=== PATIENT | male | born 1965 | race Caucasian/White ===

== ENCOUNTER → 2016-04-01 | Outpatient (CLI) | payer BC ==
[2016-04-01 17:40] LABS: Basophils % (A) 1 %; CH 30.8; CHCM 33.9; Eosinophils # (A) 0.2 k/uL (0-0.7); Eosinophils % (A) 4 %; HCT 40.7 % (39.0-53.0); HDW 2.31; HGB 13.6 gm/dL (13.0-17.5); Luc # (Auto) 0.09; Luc % (Auto) 2; Lymphocytes # (A) 1.2 k/uL (1.0-4.8); Lymphocytes % (A) 24 %; MCH 30.4 pg (25.0-35.0); MCHC 33.3 g/dL (31.0-37.0); MCV 91.3 fL (80.0-100.0); Mean Platelet Volume 6.6; Monocytes # (A) 0.2 k/uL (0-1.0); Monocytes % (A) 4 %; Neutrophils # (A) 3.4 k/uL (1.3-7.7); Neutrophils % (A) 66 %; RBC 4.46 m/uL (4.30-5.90); WBC 5.2 k/uL (3.8-10.6); WBC (Perox) 5.69
[2016-04-01 17:52] LABS: Bilirubin, Delta 0.2 mg/dL (0.0-0.2); Total Bilirubin 0.3 mg/dL (0.2-1.3); Total Protein 6.9 g/dL (6.3-8.2)
[2016-04-04 09:49] LABS: Hepatits C Virus RNA, Quant <12 IU/mL (<12); LOG HCV IU/mL <1.08 (<1.08)
== END | disposition home or self-care (01) ==
LOC: LABWHC1 17:23
PROVIDERS: ATTEND Physician Assistant
DX: B18.2 Chronic viral hepatitis C (principal)
CPT/HCPCS: 36415; 80076; 85025; 87522

== ENCOUNTER 2020-11-28 01:08 | Inpatient (IN) | payer BC, OTHER ==
[2020-11-28] MEDS ORDERED: DIPH,PERTUS(ACELL)TETVAC-LF 0.5 ML VIAL IM ONE (01:12)
[2020-11-28] MEDS ORDERED: SODIUM CHLORIDE 0.9% 1,000 ML IV STA (01:12)
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
--- NOTE | 2020-11-28 01:39 | XR ---
EXAMINATION TYPE: XR pelvis AP view DATE OF EXAM: 11/28/2020 COMPARISON: NONE HISTORY: Unresponsive. Pain TECHNIQUE: Single view FINDINGS: Pelvic ring is intact. Proximal femurs and hip joints appear intact. Sacroiliac joints appe ar normal. IMPRESSION: Normal pelvis
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
[2020-11-28] MEDS ORDERED: MORPHINE SULFATE 4 MG/ML SYRINGE IVP PRN (01:55)
[2020-11-28 01:57] LABS: Glucose,Whole Blood 111 mg/dL (75-99)
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
[2020-11-28 02:06] LABS: Basophils # (A) 0.1 k/uL (0-0.2); Basophils % (A) 1 %; Eosinophils # (A) 0.2 k/uL (0-0.7); Eosinophils % (A) 2 %; HCT 40.1 % (39.0-53.0); Lymphocytes % (A) 9 %; MCHC 34.9 g/dL (31.0-37.0); MCV 88.7 fL (80.0-100.0); Mean Platelet Volume 7.8; Monocytes # (A) 0.5 k/uL (0-1.0); Monocytes % (A) 4 %; Neutrophils # (A) 9.3 k/uL (1.3-7.7); Neutrophils % (A) 84 %; Platelet Count 228 k/uL (150-450); RBC 4.52 m/uL (4.30-5.90); RDW 12.7 % (11.5-15.5); WBC 11.1 k/uL (3.8-10.6)
[2020-11-28 02:22] LABS: ALT 17 U/L (4-49); AST 27 U/L (17-59); African American GFR (CKD) >90 (>60 ml/min/1.73 sqM); Albumin 4.1 g/dL (3.5-5.0); Alcohol <10 mg/dL; Alkaline Phosphatase 112 U/L (38-126); Anion Gap 12 mmol/L; Blood Urea Nitrogen 15 mg/dL (9-20); Calcium 9.1 mg/dL (8.4-10.2); Carbon Dioxide 22 mmol/L (22-30); Chloride 104 mmol/L (98-107); Glucose 113 mg/dL (74-99); Non-African American GFR(CKD) 81 (>60 ml/min/1.73 sqM); Potassium 3.8 mmol/L (3.5-5.1); Sodium 138 mmol/L (137-145); Total Bilirubin 0.4 mg/dL (0.2-1.3)
[2020-11-28 02:28] LABS: INR 0.9 (<1.2); Prothrombin Time 9.7 sec (9.0-12.0)
[2020-11-28 02:46] LABS: Partial Thromboplastin Time 21.3 sec (22.0-30.0)
[2020-11-28 03:13] LABS: Appearance,Urine Clear (Clear); Bilirubin,Urine Negative (Negative); Blood,Urine Negative (Negative); Color,Urine Light Yellow; Glucose,Urine (UA) Negative (Negative); Ketones,Urine Negative (Negative); Leukocyte Esterase,Urine Negative (Negative); Nitrite,Urine Negative (Negative); Protein,Urine Negative (Negative); Specific Gravity,Urine 1.029 (1.001-1.035); Urobilinogen,Urine <2.0 mg/dL (<2.0)
[2020-11-28 03:31] LABS: Amphetamine Screen,Urine Detected (NotDetected); Barbiturate Screen,Urine Not Detected (NotDetected); Benzodiazepines Screen,Urine Not Detected (NotDetected); Cocaine Screen,Urine Not Detected (NotDetected); Methadone Screen, Urine Not Detected (NotDetected); Opiate Screen,Urine Detected (NotDetected); Oxycodone Screen, Urine Not Detected (NotDetected); Phencyclidine Screen,Urine Not Detected (NotDetected); Tricyclic Antidepressant,Urine Not Detected (NotDetected); Urn Cannabinoid Scrn Detected (NotDetected)
[2020-11-28] MEDS ORDERED: NALOXONE 0.4 MG/ML 1 ML VIAL IVP STA (04:19)
[2020-11-28] MEDS: NALOXONE 0.4 MG/ML 1 ML VIAL IVP STA ×2 (04:22→04:28)
[2020-11-28] MEDS ORDERED: MORPHINE SULFATE 4 MG/ML SYRINGE IV PRN (04:54)
[2020-11-28] MEDS ORDERED: LORazepam 2 MG/ML INJ IV PRN (04:54)
[2020-11-28] MEDS ORDERED: ONDANSETRON 4 MG/2 ML VIAL IVP PRN (04:54)
[2020-11-28] MEDS ORDERED: NALOXONE 0.4 MG/ML 1 ML VIAL IV PRN (04:54)
[2020-11-28] MEDS: SODIUM CHLORIDE 0.9% 1,000 ML IV SCH ×3 (06:20→20:22)
[2020-11-28] MEDS ORDERED: KETOROLAC 15 MG/ML 1 ML VIAL IVP PRN (09:59)
[2020-11-28] MEDS ORDERED: KETOROLAC 15 MG/ML 1 ML VIAL IVP SCH (12:00)
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
[2020-11-28] MEDS: QUEtiapine 25 MG TAB PO SCH (20:20)
[2020-11-28] MEDS: FAMOTIDINE 20 MG/2 ML VIAL IV SCH (20:23)
[2020-11-28 20:25] LABS: Glucose,Whole Blood 124 mg/dL (75-99)
--- NOTE | 2020-11-28 21:37 | CT ---
EXAMINATION TYPE: CT brain wo con DATE OF EXAM: 11/28/2020 COMPARISON: Today HISTORY: unresponsive CT DLP: 1114.4 mGycm Automated exposure control for dose reduction was used. Images obtained without contrast. Exam limited slightly by motion. Ventricles have normal size. There is no mass effect nor midline nessa ft. There is no sign of intracranial hemorrhage. Calvarium is intact. There is ethmoid and frontal si nus mucosal thickening. There are fluid levels in the frontal sinuses. IMPRESSION: No acute intracranial abnormality. No change compared to exam earlier today.
[2020-11-29] MEDS: SODIUM CHLORIDE 0.9% 1,000 ML IV SCH ×2 (04:51→16:32)
[2020-11-29 07:49] LABS: Basophils # (A) 0.1 k/uL (0-0.2); Basophils % (A) 1 %; Eosinophils # (A) 0.2 k/uL (0-0.7); Eosinophils % (A) 1 %; HGB 14.8 gm/dL (13.0-17.5); Lymphocytes # (A) 1.1 k/uL (1.0-4.8); Lymphocytes % (A) 10 %; MCH 30.3 pg (25.0-35.0); MCHC 34.4 g/dL (31.0-37.0); MCV 88.1 fL (80.0-100.0); Mean Platelet Volume 8.4; Monocytes # (A) 0.5 k/uL (0-1.0); Monocytes % (A) 5 %; Neutrophils # (A) 9.2 k/uL (1.3-7.7); Neutrophils % (A) 83 %; Platelet Count 212 k/uL (150-450); RBC 4.88 m/uL (4.30-5.90); RDW 12.8 % (11.5-15.5); WBC 11.2 k/uL (3.8-10.6)
[2020-11-29 08:12] LABS: ALT 16 U/L (4-49); AST 29 U/L (17-59); African American GFR (CKD) >90 (>60 ml/min/1.73 sqM); Albumin 4.2 g/dL (3.5-5.0); Alkaline Phosphatase 100 U/L (38-126); Anion Gap 10 mmol/L; Blood Urea Nitrogen 11 mg/dL (9-20); Calcium 9.2 mg/dL (8.4-10.2); Carbon Dioxide 22 mmol/L (22-30); Chloride 100 mmol/L (98-107); Glucose 108 mg/dL (74-99); Lipase 39 U/L (23-300); Magnesium 2.1 mg/dL (1.6-2.3); Non-African American GFR(CKD) >90 (>60 ml/min/1.73 sqM); Phosphorus 2.7 mg/dL (2.5-4.5); Potassium 4.4 mmol/L (3.5-5.1); Sodium 132 mmol/L (137-145); Total Bilirubin 0.9 mg/dL (0.2-1.3); Total Protein 7.2 g/dL (6.3-8.2)
[2020-11-29] MEDS: FAMOTIDINE 20 MG/2 ML VIAL IV SCH ×2 (08:24→20:37)
[2020-11-29] MEDS: ENOXAPARIN 40 MG/0.4 ML SYRINGE SQ SCH (08:24)
[2020-11-29] MEDS ORDERED: THIAMINE 100 MG TAB PO SCH (09:00)
[2020-11-29] MEDS ORDERED: NALOXONE 0.4 MG/ML 1 ML VIAL IVP STA (09:05)
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
[2020-11-29] MEDS: THIAMINE 100 MG in SODIUM CHLORIDE 0.9% 50 ML IVPB SCH ×2 (10:38→20:37)
--- NOTE | 2020-11-29 12:07 | P.PN ---
Progress Note - Text Progress Note Date: 11/29/20 Patient remains encephalopathic. He is currently being worked up by neurology and medicine. It is unclear if it's a metabolic encephalopathy due to his drug use. On exam vital signs are stable. His facial abrasions are healing. Chest is clear abdomen soft nontender. Encephalopathy, unsure of etiology. He'll continue receive supportive care.
[2020-11-29] MEDS: QUEtiapine 25 MG TAB PO SCH (20:37)
[2020-11-30] MEDS: SODIUM CHLORIDE 0.9% 1,000 ML IV SCH ×3 (02:17→23:09)
[2020-11-30 07:26] LABS: Glucose,Whole Blood 90 mg/dL (75-99)
[2020-11-30] MEDS: FAMOTIDINE 20 MG/2 ML VIAL IV SCH ×2 (08:57→21:42)
[2020-11-30] MEDS: ENOXAPARIN 40 MG/0.4 ML SYRINGE SQ SCH (08:57)
[2020-11-30] MEDS: THIAMINE 100 MG in SODIUM CHLORIDE 0.9% 50 ML IVPB SCH ×2 (08:57→21:42)
[2020-11-30 10:04] LABS: African American GFR (CKD) >90 (>60 ml/min/1.73 sqM); Anion Gap 10 mmol/L; Blood Urea Nitrogen 13 mg/dL (9-20); Calcium 8.9 mg/dL (8.4-10.2); Carbon Dioxide 20 mmol/L (22-30); Chloride 98 mmol/L (98-107); Glucose 78 mg/dL (74-99); Non-African American GFR(CKD) >90 (>60 ml/min/1.73 sqM); Sodium 128 mmol/L (137-145)
[2020-11-30 10:11] LABS: Potassium 4.3 mmol/L (3.5-5.1)
[2020-11-30 11:13] LABS: Basophils # (A) 0.1 k/uL (0-0.2); Basophils % (A) 1 %; Eosinophils # (A) 0.1 k/uL (0-0.7); Eosinophils % (A) 1 %; HCT 42.7 % (39.0-53.0); HGB 14.8 gm/dL (13.0-17.5); Lymphocytes # (A) 1.3 k/uL (1.0-4.8); Lymphocytes % (A) 14 %; MCH 30.7 pg (25.0-35.0); MCHC 34.7 g/dL (31.0-37.0); MCV 88.5 fL (80.0-100.0); Mean Platelet Volume 9.5; Monocytes # (A) 0.8 k/uL (0-1.0); Monocytes % (A) 8 %; Neutrophils # (A) 6.9 k/uL (1.3-7.7); Neutrophils % (A) 76 %; Platelet Count 211 k/uL (150-450); RBC 4.82 m/uL (4.30-5.90); RDW 11.9 % (11.5-15.5); WBC 9.1 k/uL (3.8-10.6)
[2020-11-30] MEDS: HALOPERIDOL LACTATE 5 MG/ML 1 ML VIAL IM PRN (12:35)
[2020-11-30] MEDS ORDERED: LORazepam 2 MG/ML INJ IV STA (12:59)
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
--- NOTE | 2020-11-30 15:27 | CT ---
"EXAMINATION TYPE: CT brain wo con DATE OF EXAM: 11/30/2020 HISTORY: [facility], AMS CT DLP: 2466.2 mGycm. Automated Exposure Control for Dose Reduction was Utilized. TECHNIQUE: CT brain without contrast COMPARISON: CT Brain Without 2 days ago. FINDINGS: There are small areas of acute subarachnoid hemorrhage now present on the right particula rly right parietal region axial image 29 confirmed by repeat sequence near image 14. Some acute subar achnoid hemorrhage in the left central sulcus axial image 26 is also present. No new hydrocephalus or midline shift. Engel-white matter differentiation is maintained. Dependent fluid in the left sphenoid sinus redemonstrated. Some dependent fluid in the bilateral frontal and left ethmoid sinus is again seen. The calvarium is intact. IMPRESSION: New areas of bilateral acute subarachnoid hemorrhage. A Brainard level critical message alert has been initiated for Joss Sagastume MD via the [employer] 24/7 60 | Critical Results System on 11/30/2020 3:25 PM. This message alert has been sent to Joss frausto MD via the preferences provided by the clinician for the receipt of Radiology Critical Findings. [facility] ID [id number]."
--- NOTE | 2020-11-30 15:36 | CT ---
EXAMINATION TYPE: CT angio head neck DATE OF EXAM: 11/30/2020 HISTORY: CHI, AMS COMPARISON: None. CT DLP: 547.4 mGycm. Automated Exposure Control for Dose Reduction was Utilized. TECHNIQUE: CTA scan of the head and neck are performed with IV Contrast, patient injected with 65 mL of Isovue 370, axial images are obtained, coronal and sagittal reformatted images are reviewed. 3D r econstructed images are created on an independent workstation and reviewed. FINDINGS: Carotid/Vascular Structures: Normal 3 vessel origin from aortic arch. Normal origin right common giles tid artery from the right brachiocephalic artery. No linear hypodensity to suggest dissection. Minim al calcified plaque left carotid bulb otherwise no significant plaque or stenosis in the left common or internal carotid arteries. No significant stenosis in the external carotid arteries bilaterally. T here may have been prior surgery on right carotid bulb level as there is dense material possible clip or suture with some narrowing at its origin but no greater than 50% stenosis. Dominant right vertebral artery. Vertebral arteries are patent to basilar junction. Patent bilateral posterior communicating arteries. No significant focal stenosis or aneurysm. Anterior circulation apollo ws patent anterior communicating artery. No significant focal stenosis or aneurysm. Other: Small focus of gas in the right parapharyngeal fat space axial image 67 of uncertain etiology or significance. Mild/moderate mucosal thickening in the left maxillary sinus. Patchy opacification of the mastoid air cells is noted increasing from older studies IMPRESSION: 1. Some narrowing at origin of right proximal internal carotid artery, suspected prior surgery near t his level. No greater than 50% stenosis in either common or internal carotid artery bilaterally. 2. No aneurysm or significant stenosis at the level of the [place]. 3. Worsening fluid right mastoid air cells raises concern for developing mastoiditis, correlate clini mercedes. NASCET criteria was used in interpretation of this exam?
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
[2020-11-30 17:19] LABS: Glucose,Whole Blood 71 mg/dL (75-99)
[2020-11-30] MEDS: QUEtiapine 25 MG TAB PO SCH (21:37)
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
[2020-12-01 03:52] LABS: Basophils # (A) 0.1 k/uL (0-0.2); Basophils % (A) 1 %; Eosinophils # (A) 0.1 k/uL (0-0.7); Eosinophils % (A) 2 %; HCT 42.4 % (39.0-53.0); HGB 14.6 gm/dL (13.0-17.5); Lymphocytes # (A) 1.6 k/uL (1.0-4.8); Lymphocytes % (A) 19 %; MCH 30.3 pg (25.0-35.0); MCHC 34.4 g/dL (31.0-37.0); Mean Platelet Volume 8.1; Monocytes # (A) 0.7 k/uL (0-1.0); Monocytes % (A) 8 %; Neutrophils # (A) 5.9 k/uL (1.3-7.7); Neutrophils % (A) 70 %; Platelet Count 224 k/uL (150-450); RBC 4.82 m/uL (4.30-5.90); WBC 8.4 k/uL (3.8-10.6)
[2020-12-01 04:07] LABS: African American GFR (CKD) >90 (>60 ml/min/1.73 sqM); Anion Gap 10 mmol/L; Blood Urea Nitrogen 15 mg/dL (9-20); Calcium 8.9 mg/dL (8.4-10.2); Carbon Dioxide 20 mmol/L (22-30); Chloride 100 mmol/L (98-107); Glucose 78 mg/dL (74-99); Non-African American GFR(CKD) >90 (>60 ml/min/1.73 sqM); Potassium 3.9 mmol/L (3.5-5.1); Sodium 130 mmol/L (137-145)
[2020-12-01] MEDS: FAMOTIDINE 20 MG/2 ML VIAL IV SCH ×2 (08:24→20:39)
[2020-12-01] MEDS: SODIUM CHLORIDE 0.9% 1,000 ML IV SCH ×2 (08:25→19:10)
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
[2020-12-01 11:56] LABS: Glucose,Whole Blood 68 mg/dL (75-99)
[2020-12-01] MEDS: THIAMINE 100 MG in SODIUM CHLORIDE 0.9% 50 ML IVPB SCH ×2 (12:10→20:39)
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
[2020-12-01 18:32] LABS: Glucose,Whole Blood 104 mg/dL (75-99)
[2020-12-01 20:27] VITALS: TEMP 98.3
--- NOTE | 2020-12-01 20:36 | CT ---
EXAMINATION TYPE: CT brain wo con DATE OF EXAM: 12/01/2020 COMPARISON: CT brain 11/30/2020 HISTORY: Post fall. CT DLP: 1198.4 mGycm Automated exposure control for dose reduction was used. FINDINGS: There is redemonstration of a few foci of subarachnoid hemorrhage over the right cerebral convexity. Mild asymmetric layering hyperdensity is also seen along the right tentorial leaflet Punctate hyperde nsity is also seen in the anterior left frontal lobe. There is no large vessel territory infarct, mass effect, or midline shift identified. The ventricles and sulci are within normal limits in size. The globes are intact. Mild mucosal thickening of the l eft maxillary sinus the sphenoid sinuses.. Opacification of a few mastoid air cells on the right. Asymmetric prominence of the left temporalis muscle prior. IMPRESSION: 1. Redemonstration of right-sided subarachnoid and subdural hemorrhage similar to prior. 2. A focal punctate hyperdensity seen in the left frontal lobe is favored to represent intraparenchy mal hemorrhage, similar to prior.
[2020-12-01] MEDS: HALOPERIDOL LACTATE 5 MG/ML 1 ML VIAL IM PRN (20:38)
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
[2020-12-02] MEDS: QUEtiapine 25 MG TAB PO SCH (01:04)
[2020-12-02] MEDS: HALOPERIDOL LACTATE 5 MG/ML 1 ML VIAL IM PRN (01:58)
[2020-12-02 04:09] VITALS: BP 141/89; RESP 15
[2020-12-02 04:37] LABS: Basophils # (A) 0.1 k/uL (0-0.2); Basophils % (A) 1 %; Eosinophils # (A) 0.2 k/uL (0-0.7); Eosinophils % (A) 2 %; HCT 42.8 % (39.0-53.0); HGB 14.8 gm/dL (13.0-17.5); Lymphocytes # (A) 1.4 k/uL (1.0-4.8); Lymphocytes % (A) 16 %; MCH 30.2 pg (25.0-35.0); MCHC 34.7 g/dL (31.0-37.0); Mean Platelet Volume 7.9; Monocytes # (A) 0.5 k/uL (0-1.0); Monocytes % (A) 6 %; Neutrophils # (A) 6.3 k/uL (1.3-7.7); Neutrophils % (A) 74 %; Platelet Count 235 k/uL (150-450); RBC 4.92 m/uL (4.30-5.90); RDW 12.4 % (11.5-15.5); WBC 8.6 k/uL (3.8-10.6)
[2020-12-02 04:50] LABS: African American GFR (CKD) >90 (>60 ml/min/1.73 sqM); Anion Gap 11 mmol/L; Blood Urea Nitrogen 12 mg/dL (9-20); Calcium 8.9 mg/dL (8.4-10.2); Carbon Dioxide 20 mmol/L (22-30); Chloride 102 mmol/L (98-107); Glucose 92 mg/dL (74-99); Non-African American GFR(CKD) >90 (>60 ml/min/1.73 sqM); Sodium 133 mmol/L (137-145)
[2020-12-02 05:09] VITALS: PULSE 50
== END 2020-12-02 05:42 | DRG 83 ==
LOC: EC 01:08 → 6NMEDSUR 04:54 → 3SCARD 07:34 → OBSVTOIN 11-30 10:05 → 2SICU 11-30 17:10
PROVIDERS: ADMIT Surgery; ATTEND Surgery
PROC: 0HQ1XZZ Repair Face Skin, External Approach (ICD-10-PCS; principal; 2020-11-30)
DX: S06.6X9A Traumatic subarachnoid hemorrhage with loss of consciousness of unspecified duration, initial encounter (principal); E87.1 Hypo-osmolality and hyponatremia; G92.00 Immune effector cell-associated neurotoxicity syndrome, grade unspecified; S02.85XA Fracture of orbit, unspecified, initial encounter for closed fracture; S01.112A Laceration without foreign body of left eyelid and periocular area, initial encounter; S01.81XA Laceration without foreign body of other part of head, initial encounter; Z20.822 Contact with and (suspected) exposure to COVID-19; D72.829 Elevated white blood cell count, unspecified; T50.915A Adverse effect of multiple unspecified drugs, medicaments and biological substances, initial encounter; G62.9 Polyneuropathy, unspecified; T40.601A Poisoning by unspecified narcotics, accidental (unintentional), initial encounter; H40.9 Unspecified glaucoma; J32.1 Chronic frontal sinusitis; J32.2 Chronic ethmoidal sinusitis; Y09 Assault by unspecified means; X58.XXXA Exposure to other specified factors, initial encounter; Z78.1 Physical restraint status; T43.622A Poisoning by amphetamines, intentional self-harm, initial encounter
CPT/HCPCS: 36415; 70450; 70486; 70496; 70498; 71045; 71260; 72125; 72170; 74177; 80048; 80053; 80306; 80320; 81003; 83690; 83735; 84100; 84443; 84484; 85025; 85610; 85730; 86850; 86900; 86901; 87635; 90471; 90715; 93005; 95816; 96365; 96375; 99291

== ENCOUNTER → 2024-02-13 | Outpatient (CLI) | payer MEDICARE | END | disposition home or self-care (01) | LOC: LABWHC1 13:55 | PROVIDERS: ATTEND Family Medicine | DX: Z13.6 Encounter for screening for cardiovascular disorders (principal); Z82.3 Family history of stroke ==